=== PATIENT | male | born 1930 | race Caucasian/White ===

== ENCOUNTER 2017-04-13 23:36 | Inpatient (IN) | payer OTHER ==
[~2017-04-13] VITALS: Ht 154.9 cm; Wt 51.9 kg
[2017-04-14 01:40] LABS: BASOPHIL % 0.4 % (0-2); PLATELET COUNT 270 x10^3mcL (130-400)
[2017-04-14 01:48] LABS: RED CELL DISTRIBUTION WIDTH 16.7 % (11.5-14.5)
[2017-04-14 01:51] LABS: CALCIUM 8.3 mg/dL (8.5-10.1); CARBON DIOXIDE 18.9 mmol/L (21-32); CHLORIDE SERUM 106 mmol/L (98-107); CREATININE SERUM 1.7 mg/dL (0.7-1.3); GLUCOSE SERUM 137 mg/dL (74-106); POTASSIUM SERUM 4.5 mmol/L (3.5-5.1); SODIUM SERUM 135 mmol/L (136-145)
[2017-04-14 02:03] LABS: ALKALINE PHOSPHATASE 80 U/L (46-116); ALT/SGPT 13 U/L (16-63); AST/SGOT 11 U/L (15-37); BILIRUBIN TOTAL 0.2 mg/dL (0.20-1.00); LIPASE 60 IU/L (73-393); T4(THYROXINE) 9.2 ug/dL (4.7-13.3); TOTAL PROTEIN, SERUM 6.2 g/dL (6.4-8.2)
[2017-04-14 02:07] LABS: ALBUMIN 2.6 g/dL (3.4-5.0)
[2017-04-14 02:12] LABS: CK-MB 1.1 ng/mL (0-3.6)
[2017-04-14] MEDS ORDERED: ZESTRIL5 MG PO (03:39)
[2017-04-14] MEDS ORDERED: METFORMIN HCL1000 MG PO (03:39)
[2017-04-14] MEDS ORDERED: FINASTERIDE5 M1 PO (03:40)
[2017-04-14] MEDS ORDERED: TAMSULOSIN HYD0.4 M1 PO (03:40)
[2017-04-14] MEDS ORDERED: SYNTHROID0.112 MG PO (03:40)
[2017-04-14 08:01] VITALS: BP 132/79
[2017-04-14 08:13] LABS: RED BLOOD CELLS 2.87 M/mm3 (4.52-5.90)
[2017-04-14 08:39] LABS: IRON 26 ug/dL (65-170); TOTAL IRON BINDING CAPACITY 201 ug/dL (250-450)
[2017-04-14 17:16] LABS: UA SPECIFIC GRAVITY 1.015 (1.005-1.035); microscopic required? YES; urine erythrocyte TRACE (NEGATIVE)
[2017-04-14 17:56] VITALS: BP 139/52
[2017-04-14 21:48] VITALS: BP 142/75
[2017-04-15 07:05] LABS: BASOPHIL % 0.6 % (0-2); PLATELET COUNT 232 x10^3mcL (130-400)
[2017-04-15 07:06] LABS: RED CELL DISTRIBUTION WIDTH 16.9 % (11.5-14.5)
[2017-04-15 07:21] LABS: CALCIUM 7.9 mg/dL (8.5-10.1); CARBON DIOXIDE 18.5 mmol/L (21-32); CHLORIDE SERUM 115 mmol/L (98-107); GLUCOSE SERUM 117 mg/dL (74-106); MAGNESIUM 1.4 mg/dL (1.8-2.4); POTASSIUM SERUM 4.2 mmol/L (3.5-5.1); SODIUM SERUM 143 mmol/L (136-145)
[2017-04-15 07:28] VITALS: BP 122/77
[2017-04-15 18:05] VITALS: BP 165/59
[2017-04-15 21:46] VITALS: BP 153/77
[2017-04-16 05:18] VITALS: BP 146/71
[2017-04-16 06:30] LABS: CALCIUM 7.9 mg/dL (8.5-10.1); CARBON DIOXIDE 18.5 mmol/L (21-32); CHLORIDE SERUM 116 mmol/L (98-107); CREATININE SERUM 0.9 mg/dL (0.7-1.3); GLUCOSE SERUM 127 mg/dL (74-106); MAGNESIUM 1.8 mg/dL (1.8-2.4); POTASSIUM SERUM 4.3 mmol/L (3.5-5.1); SODIUM SERUM 143 mmol/L (136-145)
[2017-04-16 07:24] LABS: BASOPHIL % 0.6 % (0-2); PLATELET COUNT 221 x10^3mcL (130-400)
[2017-04-16 07:37] LABS: RED CELL DISTRIBUTION WIDTH 17.4 % (11.5-14.5)
[2017-04-16 10:17] VITALS: BP 147/65
[2017-04-16 17:27] VITALS: BP 158/67
[2017-04-16 20:00] VITALS: BP 159/58
[2017-04-16 22:01] VITALS: BP 170/76
[2017-04-17 01:16] VITALS: BP 127/68
[2017-04-17 06:03] VITALS: BP 132/58
[2017-04-17 09:39] VITALS: BP 152/72
[2017-04-17 12:05] VITALS: BP 152/72
[2017-04-17] MEDS ORDERED: LAC PO (12:16)
[2017-04-17] MEDS ORDERED: MAC100 PO (12:16)
[2017-04-17] MEDS ORDERED: GOOD SENSE OMEP20 MG PO (12:16)
[2017-04-17] MEDS ORDERED: FERG PO (12:16)
[2017-04-17] MEDS ORDERED: VITC PO (12:16)
== END 2017-04-17 14:35 | disposition home or self-care (01) | DRG 391 ==
LOC: ED 23:36 → DU 04-14 04:25 → MU 04-14 04:25 → DU 04-14 07:59 → MU 04-15 12:03
PROVIDERS: Emergency Medicine; Internal Medicine Gastroenterology; ADMIT Family Medicine
PROC: 0DB78ZX Excision of Stomach, Pylorus, Via Natural or Artificial Opening Endoscopic, Diagnostic (ICD-10-PCS; principal; 2017-04-16 14:00)
PROC: 0DJD8ZZ Inspection of Lower Intestinal Tract, Via Natural or Artificial Opening Endoscopic (ICD-10-PCS; 2017-04-16 14:00)
DX: K29.60 Other gastritis without bleeding (principal); N17.0 Acute kidney failure with tubular necrosis; E43 Unspecified severe protein-calorie malnutrition; N39.0 Urinary tract infection, site not specified; D68.69 Other thrombophilia; K27.9 Peptic ulcer, site unspecified, unspecified as acute or chronic, without hemorrhage or perforation; E86.0 Dehydration; E11.51 Type 2 diabetes mellitus with diabetic peripheral angiopathy without gangrene; E11.65 Type 2 diabetes mellitus with hyperglycemia; I10 Essential (primary) hypertension; N40.0 Benign prostatic hyperplasia without lower urinary tract symptoms; E83.42 Hypomagnesemia; M62.50 Muscle wasting and atrophy, not elsewhere classified, unspecified site; F17.210 Nicotine dependence, cigarettes, uncomplicated; D64.9 Anemia, unspecified; Z53.29 Procedure and treatment not carried out because of patient's decision for other reasons; K57.30 Diverticulosis of large intestine without perforation or abscess without bleeding; K64.8 Other hemorrhoids; Z68.21 Body mass index [BMI] 21.0-21.9, adult; Z79.84 Long term (current) use of oral hypoglycemic drugs; Z79.899 Other long term (current) drug therapy
CPT/HCPCS: 43235; 45378; 83880; 84439; B4164; J0696; J1200; J1610; J2250; J2310; J2405; J2765; J3010; J3475; J3490; J7030; Q0092

== ENCOUNTER 2017-09-24 19:14 | Emergency (ER) | payer OTHER ==
[~2017-09-24 19:14] MED LIST: FERG PO; FINASTERIDE5 M1 PO; GOOD SENSE OMEP20 MG PO; LAC PO; MAC100 PO; METFORMIN HCL1000 MG PO; SYNTHROID0.112 MG PO; TAMSULOSIN HYD0.4 M1 PO; VITC PO; ZESTRIL5 MG PO
[2017-09-24 21:55] VITALS: BP 147/80
== END 2017-09-24 21:55 | disposition home or self-care (01) ==
LOC: ED 19:14
DX: M25.062 Hemarthrosis, left knee (principal); I10 Essential (primary) hypertension; E11.9 Type 2 diabetes mellitus without complications; E07.9 Disorder of thyroid, unspecified; N40.0 Benign prostatic hyperplasia without lower urinary tract symptoms

== ENCOUNTER 2017-09-25 16:05 | Emergency (ER) | payer OTHER ==
[2017-09-25 16:47] VITALS: BP 126/97
[2017-09-25 16:53] LABS: CALCIUM 8.2 mg/dL (8.5-10.1); CHLORIDE SERUM 104 mmol/L (98-107); CREATININE SERUM 1.8 mg/dL (0.7-1.3); GLUCOSE SERUM 330 mg/dL (74-106); POTASSIUM SERUM 4.6 mmol/L (3.5-5.1); SODIUM SERUM 139 mmol/L (136-145)
[2017-09-25 16:58] LABS: ALBUMIN 2.8 g/dL (3.4-5.0); ALKALINE PHOSPHATASE 142 U/L (46-116); ALT/SGPT 17 U/L (16-63); AST/SGOT 40 U/L (15-37); BILIRUBIN TOTAL 0.43 mg/dL (0.20-1.00)
[2017-09-25 17:09] LABS: BASOPHIL % 0.5 % (0-2); PLATELET COUNT 269 x10^3mcL (130-400)
[2017-09-25 17:13] LABS: RED CELL DISTRIBUTION WIDTH 16.9 % (11.5-14.5)
== END 2017-09-25 16:56 | disposition short-term general hospital (02) ==
LOC: ED 16:05
PROVIDERS: Emergency Medicine
DX: I21.09 ST elevation (STEMI) myocardial infarction involving other coronary artery of anterior wall (principal); I50.9 Heart failure, unspecified; I10 Essential (primary) hypertension; E11.9 Type 2 diabetes mellitus without complications; Z79.84 Long term (current) use of oral hypoglycemic drugs
CPT/HCPCS: 83880; J1644; J3010; Q0092